=== PATIENT | female | born 1985 | race American Indian/Alaskan Native ===

== ENCOUNTER 2018-12-05 03:54 | Emergency (ER) | payer OTHER ==
[~2018-12-05] VITALS: Ht 154.9 cm; Wt 77.1 kg
[~2018-12-05 03:54] MED LIST: AMOXICILLIN500 M1 PO; AMOXICILLIN500 MG PO; BACTRIM DS TAB1 EACH PO; CAVAN-FOLATE D1 EACH MT; CEPHALEXIN500 MG PO; CIPRODEX OTIC7.5 ML AS; DAYPRO600 MG PO; FERROUS SULFAT325 MG PO; GUAIFENESIN-COD10 ML PO; IBUPROFEN600 MG PO; INDOMETHACIN50 MG PO; MACROBID 100 M100 MG; NORCO 5-325 TA1 EACH PO; ONDANSETRON ODT4 MG PO; PERCOCET 5-3251 EACH PO; PRENATAL TABLE1 EAC1 PO; PROMETRIUM200 MG PV; PROZAC10 MG PO; TRAMADOL HCL50 MG PO; ZOFRAN ODT4 MG PO
[2018-12-05] MEDS ORDERED: K-TAB10 MEQ PO (08:59)
== END 2018-12-05 12:31 | disposition home or self-care (01) ==
LOC: ED 03:54
DX: F10.229 Alcohol dependence with intoxication, unspecified (principal); Y90.8 Blood alcohol level of 240 mg/100 ml or more; F17.200 Nicotine dependence, unspecified, uncomplicated; Z91.048 Other nonmedicinal substance allergy status; Z79.899 Other long term (current) drug therapy
CPT/HCPCS: 80053; 81001; 83690; 84703; 85025; 96360; 99284-25; G0480; J7030

== ENCOUNTER 2022-12-01 07:18 | Emergency (ER) | payer OTHER ==
[~2022-12-01] VITALS: Ht 154.9 cm; Wt 77.1 kg
[~2022-12-01 07:18] MED LIST changes: +K-TAB10 MEQ PO
[2022-12-01] MEDS ORDERED: IBU800 MG PO ×2 (08:45→08:46)
== END 2022-12-01 09:12 | disposition home or self-care (01) ==
LOC: ED 07:18
DX: S70.02XA Contusion of left hip, initial encounter (principal); W18.30XA Fall on same level, unspecified, initial encounter; F17.200 Nicotine dependence, unspecified, uncomplicated; Z88.8 Allergy status to other drugs, medicaments and biological substances
CPT/HCPCS: 73502; 99283-25; A9270